=== PATIENT | male | born 1980 | race African-American/Black ===

== ENCOUNTER 2017-04-17 10:28 | Emergency (ER) | payer MEDICARE, MEDICAID ==
[2017-04-17] MEDS ORDERED: Acetaminophen/Codeine 30-300mg Tablet ONE (10:57)
[2017-04-17] MEDS ORDERED: Penicillin V Potassium 250 MG TAB ONE (10:59)
== END 2017-04-17 11:12 | disposition home or self-care (01) ==
LOC: NAV ERS 10:28
DX: K04.7 Periapical abscess without sinus (principal); I10 Essential (primary) hypertension; F17.210 Nicotine dependence, cigarettes, uncomplicated
CPT/HCPCS: 99282

== ENCOUNTER 2017-09-20 15:53 | Emergency (ER) | payer MEDICARE, MEDICAID ==
--- NOTE | 2017-09-20 16:48 | RAD ---
RIGHT FOOT THREE VIEWS: 09/20/17 HISTORY: Right foot pain. There is some mild arthritic changes of the first metatarsophalangeal joint. There are no signs of an y acute fracture or dislocation. IMPRESSION: No acute findings. POS: [facility]
== END 2017-09-20 17:15 | disposition home or self-care (01) ==
LOC: NAV ERS 15:53
DX: M77.51 Other enthesopathy of right foot and ankle (principal); F17.210 Nicotine dependence, cigarettes, uncomplicated; I10 Essential (primary) hypertension; K21.9 Gastro-esophageal reflux disease without esophagitis; Z79.899 Other long term (current) drug therapy

== ENCOUNTER 2017-12-19 11:12 | Emergency (ER) | payer MEDICARE, MEDICAID | END 2017-12-19 12:25 | disposition home or self-care (01) | LOC: NAV ERS 11:12 | DX: L02.412 Cutaneous abscess of left axilla (principal); I10 Essential (primary) hypertension; K21.9 Gastro-esophageal reflux disease without esophagitis; F17.210 Nicotine dependence, cigarettes, uncomplicated; Z79.899 Other long term (current) drug therapy | CPT/HCPCS: 10060 ==

== ENCOUNTER 2018-04-02 02:38 | Emergency (ER) | payer MEDICARE, MEDICAID ==
[2018-04-02] MEDS ORDERED: Acetaminophen 325 MG TAB ONE (03:12)
[2018-04-02] MEDS ORDERED: Ondansetron HCl/PF 4 MG/2 ML Vial ONE (03:13)
[2018-04-02 03:37] LABS: ALT (SGPT) 11 U/L (8-55); AST (SGOT) 20 U/L (5-34); Albumin 3.7 g/dL (3.5-5.0); Alkaline Phosphatase 78 U/L (40-150); Anion Gap 14 mmol/L (10-20); BUN (Urea Nitrogen) 5 mg/dL (8.9-20.6); Band 28 % (5-11); Bilirubin, Total 0.6 mg/dL (0.2-1.2); Calc. Creatinine Clearance 0 mL/min (70-130); Calcium 8.8 mg/dL (7.8-10.44); Carbon Dioxide 25 mmol/L (22-29); Chloride 103 mmol/L (98-107); Estimated GFR-MDRD Greater than 90; Globulin 3.3 g/dL (2.4-3.5); Glucose 104 mg/dL (70-105); Hemoglobin 16.6 g/dL (14.0-18.0); Lipase 27 U/L (8-78); Lymphocytes 7 % (21-51); MDiff Complete? YES; Mean Corpuscular HGB CONC 31.2 g/dL (32.0-36.0); Mean Corpuscular Hemoglobin 28.6 pg (27.0-31.0); Mean Corpuscular Volume 91.6 fL (78.0-98.0); Mean Platelet Volume 11.5 fL (7.4-10.4); Monocytes 6 % (0-10); Neutrophil 55 % (42-75); PLT Morphology Comment Appears Adequate; Platelet Count 135 thou/uL (130-400); Potassium 3.5 mmol/L (3.5-5.1); RBC Distribution Width 13.2 % (11.5-14.5); RBC Morphology Normal; Reactive Lymphocytes 4 % (0-10); Red Blood Cell (RBC) Count 5.82 mill/uL (4.70-6.10); Sodium 138 mmol/L (136-145); White Blood Cell (WBC) Count 6.4 thou/uL (4.8-10.8)
[2018-04-02] MEDS ORDERED: Iopamidol 370 76% 100 ML VIAL ONE (09:00)
--- NOTE | 2018-04-02 10:41 | CT ---
PRELIMINARY REPORT/[facility]/EMERGENTY AFTER-HOURS PROCEDURE CT Abdomen and Pelvis With Intravenous Contrast CLINICAL HISTORY: 37 years old, male; Pain; Abdominal pain; Other: Sharp cramps; Prior surgery; Surgery date: 6+ months ; Surgery type: Gastric sleeve 2013; Patient HX: Abdominal pain and diarrhea for past 24 hours, assoc iated with fever; Ordered iv only; TECHNIQUE: Axial computed tomography images of the abdomen and pelvis with intravenous contrast. All CT scans at this facility use at least one of these dose optimization techniques: automated exposure control; mA and/or kV adjustment per patient size (includes targeted exams where dose is matched to clinical indication); or iterative reconstruction. and sagittal reformatted images were created and reviewed. COMPARISON: No relevant prior studies available. FINDINGS: Lung bases: No acute findings. No mass. No consolidation. ABDOMEN: Liver: No acute findings. No mass. Gallbladder and bile ducts: The gallbladder is contracted. Pancreas: No acute findings. No ductal dilation. No mass. Spleen: No acute findings. No mass. Adrenals: No acute findings. No mass. Kidneys and ureters: No acute findings. No hydronephrosis. No solid mass. Stomach and bowel: Fluid-filled colon with wall thickening, most notably ascending and transverse col on with pericolic fat stranding, compatible with colitis. No evidence of bowel obstruction. Diverticulosis. Prior gastric sleeve. Questionable distal esophageal wall thickening. PELVIS: Appendix: Normal appendix. Bladder: The bladder is decompressed. No stones. Reproductive: No acute findings. ABDOMEN and PELVIS: Intraperitoneal space: No free air. No significant fluid collection. Bones/joints: No acute fracture. Bilateral L5 pars defects. Soft tissues: No acute findings. Vasculature: No acute findings. No abdominal aortic aneurysm. Lymph nodes: No significant lymphadenopathy. A few prominent mesenteric lymph nodes. IMPRESSION: Colitis. Findings described above. Thank you for allowing us to participate in the care of your patient. Dictated and Authenticated by: Etienne Raymond MD 04/02/2018 5:16 AM Central Time ([place] & [place]) FINAL REPORT CT ABDOMEN AND PELVIS WITHOUT CONTRAST: I agree with the preliminary report given by Dr. Raymond_of [facility]. POS: [facility]
== END 2018-04-02 05:35 | disposition home or self-care (01) ==
LOC: NAV ERS 02:38
DX: K52.9 Noninfective gastroenteritis and colitis, unspecified (principal); I10 Essential (primary) hypertension; K21.9 Gastro-esophageal reflux disease without esophagitis; F17.210 Nicotine dependence, cigarettes, uncomplicated; Z79.899 Other long term (current) drug therapy
CPT/HCPCS: 74177; 80053; 83690; 85025; 96361; 96374; 96375; J2270; J2405

== ENCOUNTER 2019-03-13 18:07 | Emergency (ER) | payer MEDICARE, MEDICAID | END 2019-03-13 18:36 | disposition home or self-care (01) | LOC: NAV ERS 18:07 | DX: M25.461 Effusion, right knee (principal); K21.9 Gastro-esophageal reflux disease without esophagitis; I10 Essential (primary) hypertension; F17.210 Nicotine dependence, cigarettes, uncomplicated; Z79.899 Other long term (current) drug therapy | CPT/HCPCS: 99281 ==

== ENCOUNTER 2024-06-23 19:03 | Emergency (ER) | payer OTHER, MEDICAID ==
[2024-06-23] MEDS ORDERED: Doxycycline 100 MG CAP ONE (20:39)
== END 2024-06-23 20:46 | disposition home or self-care (01) ==
LOC: NAV ERS 19:03
DX: S67.21XA Crushing injury of right hand, initial encounter (principal); L03.113 Cellulitis of right upper limb; I10 Essential (primary) hypertension; K21.9 Gastro-esophageal reflux disease without esophagitis; F17.210 Nicotine dependence, cigarettes, uncomplicated; W22.8XXA Striking against or struck by other objects, initial encounter
CPT/HCPCS: 99283